=== PATIENT | female | born 1950 | race Caucasian/White ===

== ENCOUNTER 2019-12-31 08:37 | Outpatient (CLI) | payer MEDICARE ==
--- NOTE | 2019-12-31 10:31 | RAD ---
LUMBAR SPINE 4 VIEWS: INDICATION: Low back pain, sciatica. FINDINGS: Lumbar vertebrae maintain height. There is a grade I anterolisthesis at L4-5. Mild loss of disk spa ce height at L4-5 and L5-S1. Prominent facet sclerosis and hypertrophy throughout the lumbar spine. No evidence of spondylolysis. IMPRESSION: Moderate degenerative changes of the lumbar spine. Mild anterolisthesis at L4-5 as described. POS: AH
== END 2019-12-31 08:38 | disposition home or self-care (01) ==
LOC: RAD 08:37
PROVIDERS: ATTEND Internal Medicine Rheumatology
DX: M54.42 Lumbago with sciatica, left side (principal); M47.816 Spondylosis without myelopathy or radiculopathy, lumbar region; M43.16 Spondylolisthesis, lumbar region
CPT/HCPCS: 72110

== ENCOUNTER 2020-03-24 14:23 | Outpatient (CLI) | payer MEDICARE ==
--- NOTE | 2020-03-24 15:04 | RAD ---
EXAM: 2 views of the bilateral hips HISTORY: Left hip pain COMPARISON: None FINDINGS: 2 views of the bilateral hips shows no evidence of acute fracture or dislocation. No degene rative changes are seen. No soft tissue swelling is present. IMPRESSION: No evidence of acute osseous abnormality.
--- NOTE | 2020-03-24 15:05 | RAD ---
EXAM: XR Pelvis AP STANDARD PROVIDED CLINICAL HISTORY: Left hip pain. No history of injury. COMPARISON: None FINDINGS: No fracture or dislocation is seen. Degenerative changes are seen in the lower lumbar spine. Calcific ations overlie the pelvis likely related to phleboliths. IMPRESSION: No acute osseous abnormality.
== END 2020-03-24 14:24 | disposition home or self-care (01) ==
LOC: BICRAD 14:23
PROVIDERS: ATTEND Internal Medicine Rheumatology
DX: M25.552 Pain in left hip (principal)
CPT/HCPCS: 72170; 73522

== ENCOUNTER 2020-05-05 07:34 | Outpatient (CLI) | payer MEDICARE ==
--- NOTE | 2020-05-05 09:09 | MRI ---
MR the lumbar spine without contrast: 05/05/2020 History: Lumbar radiculopathy COMPARISON: None. TECHNIQUE: Multiplanar multisequence MR images were obtained of lumbar spine without IV contrast FINDINGS: On the basis of 5 lumbar type vertebral bodies, conus medullaris terminates at theL1 level. Sagittal STIR imaging demonstrates no focal area of osseous marrow edema. There is a benign T12 heman gioma. T12-L1:Mild bilateral facet hypertrophy with no central canal or neural foraminal stenosis. L1-2:Partial disc desiccation. Mild bilateral facet hypertrophy with no significant central canal or neural foraminal stenosis. L2-3:There is disc space narrowing with disc desiccation and minimal disc bulge. Mild bilateral facet hypertrophy. No significant central canal stenosis or neural foraminal stenosis. L3-4:There is disc space narrowing with disc desiccation and mild disc bulge. Prominent bilateral fac et hypertrophy and hypertrophy of ligamentum flavum noted with mild central canal stenosis and mild left neural foraminal stenosis. L4-5:There is anterolisthesis at L4-5 measuring 8-9 mm. There is disc space narrowing with disc desic cation. Bilateral facet hypertrophy present, left greater than right. Mild central canal stenosis and mild bilateral neural foraminal stenosis. L5-S1:There is disc space narrowing with disc desiccation. There is an annular tear in the left parac entral/left foraminal region with an associated small left lateral disc protrusion which abuts and exerts mild mass effect upon the left S1 nerve root. No significant neural foraminal stenosis. Image retroperitoneal structures demonstrateno acute findings. IMPRESSION: Lumbar spine degenerative change as detailed above, most significant finding being a disc protrusion on the left in the lateral recess/foraminal region abutting the ventral aspect of the left S1 nerve root.
== END 2020-05-05 07:35 | disposition home or self-care (01) ==
LOC: TBSIIMAG 07:34
PROVIDERS: ATTEND Neurological Surgery
DX: M43.16 Spondylolisthesis, lumbar region (principal); M47.26 Other spondylosis with radiculopathy, lumbar region; M51.16 Intervertebral disc disorders with radiculopathy, lumbar region
CPT/HCPCS: 72148

== ENCOUNTER 2021-11-30 08:19 | Outpatient (CLI) | payer MEDICARE | END 2021-11-30 08:20 | disposition home or self-care (01) | LOC: BICMAMMO 08:19 | PROVIDERS: ATTEND Family Medicine | DX: Z12.31 Encounter for screening mammogram for malignant neoplasm of breast (principal); Z91.89 Other specified personal risk factors, not elsewhere classified | CPT/HCPCS: 77063; 77067 ==

== ENCOUNTER 2022-06-06 08:11 | Outpatient (CLI) | payer MEDICARE | END 2022-06-06 08:12 | disposition home or self-care (01) | LOC: BICMAMMO 08:11 | PROVIDERS: ATTEND Family Medicine | DX: Z13.820 Encounter for screening for osteoporosis (principal); N95.9 Unspecified menopausal and perimenopausal disorder | CPT/HCPCS: 77080 ==

== ENCOUNTER 2023-09-27 10:28 | Outpatient (CLI) | payer MEDICARE | END 2023-09-27 10:29 | disposition home or self-care (01) | LOC: BICMRI 10:28 | PROVIDERS: ATTEND Physician Assistant | DX: M54.16 Radiculopathy, lumbar region (principal); M43.16 Spondylolisthesis, lumbar region; M48.061 Spinal stenosis, lumbar region without neurogenic claudication | CPT/HCPCS: 72148 ==

== ENCOUNTER 2025-03-03 09:39 | Outpatient (CLI) | payer MEDICARE | END 2025-03-03 09:40 | disposition home or self-care (01) | LOC: BICMAMMO 09:39 | PROVIDERS: ATTEND Family Medicine | DX: Z12.31 Encounter for screening mammogram for malignant neoplasm of breast (principal); Z80.3 Family history of malignant neoplasm of breast; Z91.89 Other specified personal risk factors, not elsewhere classified | CPT/HCPCS: 77063; 77067 ==